=== PATIENT | male | born 1985 | race Caucasian/White ===

== ENCOUNTER 2016-05-08 23:59 | Emergency (ER) | payer BC ==
[2016-05-08 23:51] LABS: INFLUENZA A NEG (NEG); INFLUENZA B NEG (NEG)
[~2016-05-08 23:59] MED LIST: FLEXERIL PO; PHENERGAN25 MG PO; TUSSIONEX PENN473 ML PO; VICODIN 5/500 T1 TAB PO; ZITHROMAX PO
== END 2016-05-09 01:11 | disposition home or self-care (01) ==
LOC: CED 23:59
PROVIDERS: Emergency Medicine
DX: J02.0 Streptococcal pharyngitis (principal)
CPT/HCPCS: 87804; 87880; 96372; 99283; J0561